=== PATIENT | female | born 1990 | race Caucasian/White ===

== ENCOUNTER 2016-09-14 02:13 | Inpatient (IN) | payer OTHER ==
[~2016-09-14] VITALS: Ht 152.4 cm; Wt 70.8 kg
[~2016-09-14 02:13] MED LIST: Ibuprofen PO; NPR500T PO; PROC-4 PO
[2016-09-14] MEDS ORDERED: Lactated Ringer's 1,000 ML IV PRN (08:15)
[2016-09-14] MEDS ORDERED: Methylergonovine 0.2 mg/mL Inj IM PRN ×2 (08:15→17:00)
[2016-09-14] MEDS ORDERED: Oxytocin 30 Units/500 mL LR 30 UNITS in IV Premix 1 EACH IV PRN ×2 (08:15→17:00)
[2016-09-14] MEDS ORDERED: Oxytocin 10 Unit/mL Inj IM PRN ×2 (08:15→17:00)
[2016-09-14] MEDS ORDERED: Carboprost 250 mCg/mL Inj IM PRN ×2 (08:15→17:00)
[2016-09-14] MEDS ORDERED: Hemorrhage Kit, Post Partum XX ONE ×2 (08:15→17:00)
[2016-09-14] MEDS ORDERED: Sodium Chloride LOK Flush 10 mL Syringe IVFLUSH PRN (08:15)
[2016-09-14] MEDS ORDERED: Misoprostol 25 mCg/0.25 Tablet VAGINAL ONE (08:20)
[2016-09-14 08:36] LABS: Mean Corpuscular Hemoglobin 27.8 pg (27.0-35.0); Mean Corpuscular Volume 84.8 fL (81-100)
[2016-09-14] MEDS ORDERED: PNV1TABL81 PO (10:35)
--- NOTE | 2016-09-14 14:40 | PCM.HPANE ---
Patient Data Date of Service: Sep 14, 2016 Surgeon Admitting Provider:Endy Arzate MD Attending Provider:Endy Arzate MD Primary Care Physician:Endy Arzate MD Other Provider:Daljit Parish Anesthesia Reason for Visit Induction INDUCTION Ht/WT & BMI Body Mass Index Allergies Coded Allergies: tetracycline (Verified Allergy, Unknown, hives, 09/08/16) Past Anesthesia History Anesthesia History: Denies:: Abnormal Airway Diabetes History Hx Diabetes?: No MRSA MRSA: No Medications Hypertension Medication: No Home Meds Incl Beta Maria G: No Reported Medications Pnv No.122/Iron/Folic Acid ( Multi Tablet)27 Mg Iron-800 Mcg Tablet1 Each PO 09/14/16 Discontinued Scripts Prochlorperazine Maleate (Compazine)10 Mg [id number] Mg PO TID PRN For Headache # 15 TABLET Prov:Sundeep Loera DO 08/18/15 Naproxen 500 Mg [id number] Mg PO BID PRN For Pain #20 TABLET Prov:Sundeep Loera DO 08/18/15 [Ibuprofen] (Motrin)600 MG TABLET No Conflict [id number] Mg PO Q6H PRN For Mild Pain #15 TABLET Prov:Kristen Duran MD 09/03/14 History History of ENT Problems?: No HEENT History: Denies:: Abnormal Airway Denture Type: None Teeth Condition: Within Normal Limits Hx of Heart Problems?: No Cardiovascular History: Denies:: Congestive Heart Failure Hypertension Hx of Respiratory Problem?: No Respiratory History: Denies:: Asthma Tuberculosis Hx Neurologic Problems?: No Neurological History: Denies:: CVA Hx of GI Problems?: No Hx of Problems?: No HX of Peritoneal Dialysis: No Female Hx: Positive for:: Currently Hx Musculoskeletal Problems?: No Hx of Psycho/Social Problems?: No Hx Surgeries?: No Hx Any Other Health Problems?: No Other History: Positive for:: Hospitalization (childbirth) History Blood Transfusions: Denies:: Blood Transfusions Hx Diabetes: No Hx Alcohol Use: Yes (SOCIAL)Hx Substance Use: No Smoking Status: Never Smoker Have You Smoked inLast 12 mo: No Stop/Bang Treated for Sleep Apnea?: No Do You Have a CPAP Machine?: No ALVIN Risk Assessment: Low Risk, <3 Yes Risk Assessment Category Category 1A: Patient has history of documented sleep apnea, and HAS NOT received any narcotic, sedative or anesthesia administration during this stay. Category 1B: Patient has history of documented sleep apnea, and HAS received any narcotic , sedative or anesthesia administration during this stay Category 2: Patient has SUSPECTED Obstructive Sleep Apnea, and HAS received any narcotic , sedative or anesthesia administration during this stay. Category 3: Patient has SUSPECTED Obstructive Sleep Apnea and HAS NOT received narcotic, sedative or anesthesia administration during this stay. Category 4: Outpatient in Procedural Areas with known sleep apnea or who screen positive for High Risk via the STOP/BANG questionnaire. Exam Exam General Appearance: Alert, Oriented X3 HEENT/AIRWAY: MP 1 Lungs: Clear to Auscultation Heart: Exam Unremarkable Meds/Labs/Diagnostics Labs Test 09/14/16 08:00 White Blood Count 9.8th/mm3 (3.8-10.1) Red Blood Count 3.96mil/mm3 (3.90-5.20) Hemoglobin 11.0g/dL (12.0-15.6) Hematocrit 33.6% (35.0-46.0) Mean Corpuscular Volume 84.8fL (81-100) Mean Corpuscular Hemoglobin 27.8pg (27.0-35.0) Mean Corpuscular Hemoglobin Concent 32.7% (32.0-37.0) Red Cell Distribution Width 13.4% (12.3-15.4) Platelet Count 468bil/L (150-400) Plan Impression Patient chart reviewed, patient interviewed and anesthestic plan with risks, benefits, and alternatives discussed, and informed consent obtained. NPO per Anesth. Guidelines: Yes ASA Physical Status: ASA1 Normal Healthy Anesthetic Plan: Regional Block Bene/Risks/Altern/Consents: Yes HP Complete Prior to Induction: Yes Mathew Montalvo MD Sep 14, 2016 14:40
--- NOTE | 2016-09-14 16:13 | HP ---
[address] [address] HISTORY AND PHYSICAL PATIENT: JUNAID ALTMAN : 1990 MR#: [id number] ADMIT: 09/14/2016 JOB ID: [id number] CHIEF COMPLAINT: Induction of labor. HISTORY OF PRESENT ILLNESS: This is a 26-year-old G 3, P 2-0-0-2 female who is presenting at 39 plus 4 weeks gestational age with an EDC of September 17, 2016, for an induction of labor due to biparietal diameter less than 5th percentile. She also had hematuria as well as proteinuria in the but blood pressures were otherwise normal. She had been followed for the small biparietal diameter with the last one at 1st percentile at her last ultrasound, and because of this, she was recommended to proceed with an induction of labor beyond 39 weeks. PAST MEDICAL HISTORY: Denies with the exception of proteinuria and hematuria. OBSTETRICAL HISTORY: She has had two full-term vaginal deliveries in the remote past at 40 weeks. Largest baby was 7 pounds 1 ounce. Her deliveries were complicated by proteinuria as well previously. SURGICAL HISTORY: None. OBSTETRICAL HISTORY: As noted above. SOCIAL HISTORY: No tobacco, alcohol or drug use. FAMILY HISTORY: Noncontributory. LABORATORY DATA: Shows a blood type of A positive, antibody screen negative, rubella immune, varicella immune, hep B surface antigen negative, RPR nonreactive, HIV negative, and GBS negative. Last ultrasound showed 24th percentile estimated weight, with a biparietal diameter at the 1st percentile and a nuchal cord was noted. Objectively, at the time of admission, her blood pressure is 123/82, her heart rate is 93, her temperature is 36.6, and she is satting 98% on room air. In general, she is awake, alert, oriented, in no acute distress. Heart shows regular rate and rhythm. Her lungs are clear to auscultation bilaterally. Her abdomen is soft, nontender, nondistended with size appropriate for dates. Fundal height is 38. Her extremities show no tenderness, trace lower extremity edema. She was started on Pitocin in the morning and her cervix was checked by me. At last check, she was noted to be 4, 60% effaced and -2 station. heart tones show 130s baseline, moderate variability, with accelerations present. Mild occasional variable decelerations. She was yfn every 2 minutes. Pitocin was noted to be at 10 milliunits. An artificial rupture of membranes was completed at the bedside with return of clear fluid. ASSESSMENT AND PLAN: This is a 26-year-old G 3, P 2-0-0-2 female at 39 plus 4 weeks gestational age with an EDC of September 17, 2016, admitted for an induction of labor due to biparietal diameter at the 1st percentile. Induction has been started with Pitocin per protocol and artificial rupture of membranes was completed. She will receive an epidural when desired. She is GBS negative and no antibiotics are indicated. She is also Rh positive, rubella immune and varicella immune. The patient has agreed to the induction and we will continue with the same.
[2016-09-14] MEDS ORDERED: Benzocaine (Dermoplast) 20% 60 Gm Spray TOPICAL PRN (17:00)
[2016-09-14] MEDS ORDERED: LANOlin HPA 7 Gm Ointment TOPICAL PRN (17:00)
[2016-09-14] MEDS ORDERED: Lactated Ringer's 1,000 ML IV SCH (17:00)
[2016-09-14] MEDS ORDERED: oxyCODONE-Acetamin 5-325 mg Tablet PO PRN (17:00)
[2016-09-14] MEDS ORDERED: Witch Hazel-Glycerin Pads TOPICAL PRN (17:00)
[2016-09-14] MEDS ORDERED: Ascorbic Acid 500 mg Tablet PO SCH (17:30)
--- NOTE | 2016-09-14 23:46 | OP ---
[address] [address] OPERATIVE REPORT PATIENT: JUNAID ALTMAN : 1990 MR#: [id number] ADMIT: 09/14/2016 JOB ID: [id number] DATE OF SURGERY: 09/14/2016 PREOPERATIVE DIAGNOSIS(ES): 1. A 39 plus 4 week intrauterine , here for induction of labor. 2. Biparietal diameter less than the 1st percentile on ultrasound. 3. History of hematuria and proteinuria. POSTOPERATIVE DIAGNOSIS(ES): 1. A 39 plus 4 week intrauterine , here for induction of labor. 2. Biparietal diameter less than the 1st percentile on ultrasound. 3. History of hematuria and proteinuria. PROCEDURE PERFORMED: Spontaneous vaginal delivery. SURGEON: Bertha Phillips MD. ANESTHESIA: Local anesthetic. ESTIMATED BLOOD LOSS: 200 cc. FLUID REPLACEMENT: Crystalloid in labor. FINDINGS: Liveborn female , spontaneous cry and spontaneous movement of all four extremities, with Apgars of 8 at one minute, 9 at five minutes. weight is unavailable at this time. COMPLICATIONS: None apparent. INDICATIONS: This is a 26-year-old G3, P2-0-0-2 female who presented for an induction of labor at 39 plus 4 weeks gestation with EDC of September 17, 2016, for biparietal diameter less than the 1st percentile. She also had a history of hematuria and proteinuria in this . She was admitted on the morning of the to undergo the above-stated planned induction. Her cervix was checked and noted to be 2 cm dilated at the time of admission. She was yfn too frequently for Cytotec so Pitocin was then started per protocol. Around noon she had progressed to about 4 cm dilated and artificial rupture of membranes was completed with return of clear fluid. She very quickly progressed after rupture and got into the birthing tub. She requested epidural but our anesthesiologist was preoccupied with a section and she was not able to get one. She quickly progressed to complete and delivered precipitously prior to my arrival. PROCEDURE: The patient was delivered by the time of my arrival by the nursing staff. The umbilical cord was clamped and cut after a 60 second cord clamping delay and cord blood was then obtained. Placenta delivered intact spontaneously after Pitocin was started per protocol. The uterus was firm on bimanual exam. Examination of the cervix, vaginal vault and perineum showed a small first-degree laceration which was repaired with 3-0 Vicryl in the usual running fashion after injection with local anesthetic. She tolerated this procedure well. Recovered in labor and delivery with her infant. All sponge, needle, and instrument counts were correct.
[2016-09-15 06:57] LABS: Mean Corpuscular Hemoglobin 27.2 pg (27.0-35.0); Mean Corpuscular Volume 86.1 fL (81-100)
--- NOTE | 2016-09-15 07:22 | PCM.PNOBPP ---
Subjective Date of Service Sep 15, 2016 Post : Spontaneous Vaginal Delivery Visit History This is a 26-year-old G 3, P 2-0-0-2 female who is presenting at 39 plus 4 weeks gestational age with an EDC of September 17, 2016, for an induction of labor due to biparietal diameter less than 5th percentile. She also had hematuria as well as proteinuria in the but blood pressures were otherwise normal. She had been followed for the small biparietal diameter with the last one at 1st percentile at her last ultrasound, and because of this, she was recommended to proceed with an induction of labor beyond 39 weeks. Subjective Patient has no complaints today. Lochia: Normal Gastrointestinal: Good Appetite, No N/V Postop Activity: Ambulating Independently Labs Laboratory Tests 09/15/16 06:35: White Blood Count 13.4, Red Blood Count 3.16, Hemoglobin 8.6, Hematocrit 27.2, Mean Corpuscular Volume 86.1, Mean Corpuscular Hemoglobin 27.2, Mean Corpuscular Hemoglobin Concent 31.6, Red Cell Distribution Width 13.3, Platelet Count 353 Exam Vital Signs Vital Signs: VS reviewed, stable Exam Abdomen: Fundus firm Extremities: No cords General: Alert, Oriented X3, Cooperative, No Acute Distress OB Post Assessment/Plan Problems: (1) Vaginal delivery Plan: Doing well today. Status: Acute ICD Code: O80 Post plan: Continue routine post care, Anticipate discharge home today Endy Arzate MD Sep 15, 2016 07:16
[2016-09-15] MEDS ORDERED: Ascorbic Acid PO (07:25)
[2016-09-15] MEDS ORDERED: FERR-74 PO (07:25)
[2016-09-15] MEDS ORDERED: DOCU-41 PO (07:25)
[2016-09-15] MEDS ORDERED: IBUP800T28 PO (07:25)
--- NOTE | 2016-09-15 07:27 | PCM.DIOB ---
Obstetrical Disch Instruction Dates of Hospitalization Date of Hospital Admission Sep 14, 2016 at 07:06 Providers Admitting Physician: Endy Arzate MD Primary Care Physician: Endy Arzate MD Attending Physician: Endy Arzate MD Discharge Diagnosis Discharge Diagnosis Problems: (1) Vaginal delivery Plan: Normal vaginal delivery. Discharge home today doing well Status: Acute ICD Code: O80 Diet Discharge Diet: No restrictions Activity Discharge Activity-General: Pelvic Rest for 6 weeks, Be up and about, Balance rest and activity Dressing and Incisional Care Hygiene: May shower, Perineal care, Sitz bath Follow Up Plan Follow-up Provider (F9): Endy Arzate MD Follow-up appointment: Weeks (4) Call your provider for: Fever or Chills, Shortness of breath, Heavy vaginal bleeding, Vaginal discomfort, Red painful breasts Endy Arzate MD Sep 15, 2016 07:27
--- NOTE | 2016-09-15 07:30 | PCM.DC.OB ---
Obstetrical Discharge Summary Date of Service Sep 15, 2016 Date of hospital admission Sep 14, 2016 at 07:06 Date of Discharge: Sep 15, 2016 Providers Admitting Physician: Matt York MD Primary Care Physician: Matt York MD Attending Physician: Matt York MD Problems: (1) Vaginal delivery Status: Acute ICD Code: O80 (2) care and examination immediately after delivery Plan: Doing well Discharge home today Status: Acute ICD Code: Z39.0 Brief History and Physical: This is a 26-year-old G 3, P 2-0-0-2 female who is presenting at 39 plus 4 weeks gestational age with an EDC of September 17, 2016, for an induction of labor due to biparietal diameter less than 5th percentile. She also had hematuria as well as proteinuria in the but blood pressures were otherwise normal. She had been followed for the small biparietal diameter with the last one at 1st percentile at her last ultrasound, and because of this, she was recommended to proceed with an induction of labor beyond 39 weeks. Hospital Course: This is a 26-year-old G 3, P 2-0-0-2 female who is presenting at 39 plus 4 weeks gestational age with an EDC of September 17, 2016, for an induction of labor due to biparietal diameter less than 5th percentile. She also had hematuria as well as proteinuria in the but blood pressures were otherwise normal. She had been followed for the small biparietal diameter with the last one at 1st percentile at her last ultrasound, and because of this, she was recommended to proceed with an induction of labor beyond 39 weeks. She was started on pitocin and AROM and had a precipitous delivery. Uncomplicated course. ([Ascorbic Acid]) 500 MG TABLET 500 MG PO BIDWM Prescribed by: MATT YORK MD Docusate Sodium (Colace) 100 Mg Capsule 100 MG PO BID Prescribed by: MATT YORK MD Ferrous Sulfate (Feosol) 325 Mg Tablet 325 MG PO BIDWM Prescribed by: MATT YORK MD Ibuprofen (Ibuprofen) 800 Mg Tablet 800 MG PO Q6H PRN PRN For Pain Prescribed by: MATT YORK MD Pnv No.122/Iron/Folic Acid ( Multi Tablet) 27 Mg Iron-800 Mcg Tablet 1 EACH PO (Reported) Last Taken: Unknown Dose on 09/13/16 0900 Discontinued Medications ([Ibuprofen]) 600 MG TABLET 600 MG PO Q6H PRN PRN For Mild Pain Prescribed by: ANNETTA NINO MD Naproxen (Naproxen) 500 Mg Tab 500 MG PO BID PRN PRN For Pain Prescribed by: DAKOTAH JAUREGUI DO Prochlorperazine Maleate (Compazine) 10 Mg Tablet 10 MG PO TID PRN PRN For Headache Prescribed by: DAKOTAH JAUREGUI DO Discharge Diet: No restrictions Discharge Activity-General: Pelvic Rest for 6 weeks, Try not to overdue, Be up and about Matt York MD Sep 15, 2016 07:28
[2016-09-15 10:15] VITALS: BP 106/64; PULSE 86; RESP 17
== END 2016-09-15 10:30 | disposition home or self-care (01) | DRG 775 ==
LOC: FBC 07:06
PROVIDERS: ADMIT Obstetrics & Gynecology; ATTEND Obstetrics & Gynecology
PROC: 10E0XZZ Delivery of Products of Conception, External Approach (ICD-10-PCS; principal; 2016-09-14)
PROC: 10907ZC Drainage of Amniotic Fluid, Therapeutic from Products of Conception, Via Natural or Artificial Opening (ICD-10-PCS; 2016-09-14)
PROC: 0HQ9XZZ Repair Perineum Skin, External Approach (ICD-10-PCS; 2016-09-14)
DX: O62.3 Precipitate labor (principal); O70.0 First degree perineal laceration during delivery; Z3A.39 39 weeks gestation of pregnancy; Z37.0 Single live birth

== ENCOUNTER 2016-09-17 21:37 | Emergency (ER) | payer OTHER ==
[~2016-09-17] VITALS: Ht 165.1 cm; Wt 6.4 kg
[~2016-09-17 21:37] MED LIST changes: +Ascorbic Acid PO; +DOCU-41 PO; +FERR-74 PO; +IBUP800T28 PO; -Ibuprofen PO; -NPR500T PO; +PNV1TABL81 PO; -PROC-4 PO
[2016-09-17 21:40] VITALS: BP 117/78; PULSE 92; RESP 16; O2SAT 99
--- NOTE | 2016-09-17 22:14 | ED.REPORT ---
HPI-General Illness Date of Service Sep 17, 2016 ED Provider: Dr. Kathleen Ruiz D.O. The patient is a healthy 26 year old female three days who presents to the ED reporting RLQ abdominal pain onset today. The pain is intermittent and "sharp" in nature, with radiation to her lower back - distinct from the diffuse abdominal cramping she has been experiencing since giving . The patient also reports dizziness, decreased appetite, and nausea. She denies dysuria or other symptoms. The patient is currently . Please see MDM for more history Nursing Notes Stated Complaint: ABDOMINAL PAIN Chief Complaint: Female Abdominal Pain Nursing Notes Reviewed: Yes Allergies: Coded Allergies: tetracycline (Verified Allergy, Unknown, hives, 09/08/16) Scheduled ([Ascorbic Acid]) 500 MG TABLET 500 MG PO BIDWM Docusate Sodium (Colace) 100 Mg Capsule 100 MG PO BID Ferrous Sulfate (Feosol) 325 Mg Tablet 325 MG PO BIDWM Scheduled PRN Hydrocodone-Acetaminophen 5-325 mg (Hydrocodone-Acetaminophen 5-325 mg) 1 Each Tablet 1 TABLET PO Q4H PRN PRN For Pain Ibuprofen (Ibuprofen) 800 Mg Tablet 800 MG PO Q6H PRN PRN For Pain Miscellaneous Medications Pnv No.122/Iron/Folic Acid ( Multi Tablet) 27 Mg Iron-800 Mcg Tablet 1 EACH PO General Time Seen by MD: 22:14 Chief Complaint Abdominal pain Hx Obtained From: Patient Arrived By: Walk-in Onset Occurred: 5 - 8 hours ago Symptom Duration: Intermittent Location: : Abdomen Quality: Painful, Sharp Radiation: : Back Severity: Current: Pain level 7 out of 10 Severity: Maximum: Pain level 9 out of 10 Pertinent Negative: Relieved by nothing Recent Healthcare: Recent doctor visit, Recent hospitalization Past Medical History Past Medical History None reported Past Surgical History None reported Smoking History Never Smoker Social History Alcohol Use: Denies alcohol use Drug Use: Denies drug use Other Social History: Ambulatory Status Independent Review of Systems + Decreased appetite Full Review of Systems Constitutional: Denies: Fever Respiratory: Denies: Non-productive cough, Shortness of breath GI: Reports: Abdominal pain (RLQ), Nausea, Denies: Diarrhea, Vomiting Female: Denies: Dysuria Musculoskeletal: Reports: Back pain Neurologic: Reports: Dizziness Complete sys rev & neg: except as marked. Physical Exam Vital Signs Vital Signs Date Time Temp Pulse Resp B/P Pulse Ox O2 Delivery O2 Flow Rate FiO2 09/18/16 01:11 88 16 113/77 98 Room Air 09/18/16 01:10 88 16 113/77 98 Room Air 09/17/16 21:40 36.7 92 16 117/78 99 Room Air Initial VS: Reviewed Head / Eyes: Atraumatic, Normocephalic ENT: Conjunctiva normal, No scleral icterus Neck: Supple, Full range of motion Skin: Warm, Dry, No cyanosis Neurologic: Alert, Oriented, Nonfocal Psychiatric: Mood/affect normal, Behavior normal, Normal thought content General/Constitutional: Awake, Alert Respiratory / Chest: Breath sounds NL, Breath sounds = bilat, No respiratory distress Cardiovascular: Heart rate NL, Regular rhythm, Heart sounds NL Abdomen: Soft, No rebound Tenderness/Guarding/Rebound: Positive: McBurney's point tender, Tender RLQ... Uterine fundus is firm, 2 finger breadths below umbilicus Guarding present Back: Inspection NL, Full range of motion, No midline vertebral tend, No paraspinal tenderness, No CVA tenderness Interpretation & Diagnostics URINE DIPSTICK: Bedside Urine Specific [place] * 1.000 Bedside Urine pH * 7 Bedside Urine Leukocyte Esterase * Negative Bedside Urine Nitrite * Negative Bedside Urine Protein * ++ (100) Bedside Urine Glucose * Normal Bedside Urine Ketones * Negative Bedside Urine Urobilinogen * Normal Bedside Urine Bilirubin * Negative Bedside Urine Occult Blood * ~50 Oleg/ml Urine to Lab * Yes Lab Results Interpretation Result Diagram: 09/17/16223909/17/16 2240 Test 09/17/16 22:40 09/17/16 23:53 White Blood Count 11.0th/mm3 (3.8-10.1) Red Blood Count 3.74mil/mm3 (3.90-5.20) Hemoglobin 10.3g/dL (12.0-15.6) Hematocrit 31.5% (35.0-46.0) Mean Corpuscular Volume 84.2fL (81-100) Mean Corpuscular Hemoglobin 27.5pg (27.0-35.0) Mean Corpuscular Hemoglobin Concent 32.7% (32.0-37.0) Red Cell Distribution Width 13.6% (12.3-15.4) Platelet Count 383bil/L (150-400) Neutrophils (%) (Auto) 79.3% (40-74) Lymphocytes (%) (Auto) 14.2% (14-46) Monocytes (%) (Auto) 3.9% (4-12) Eosinophils (%) (Auto) 2.2% (0-5) Basophils (%) (Auto) 0.1% (0-3) Sodium Level 137mEq/L (134-144) Potassium Level 3.6mEq/L (3.5-5.2) Chloride Level 102mEq/L (97-108) Carbon Dioxide Level 21mmol/L (18-29) Blood Urea Nitrogen 9mg/dL (6-20) Creatinine 0.59mg/dL (0.57-1.00) Estimat Glomerular Filtration Rate 176mL/min (>59) Glucose Level 98mg/dL (60-99) Lactic Acid Level 0.7mmol/L (0.4-2.0) Calcium Level 8.5mg/dL (8.5-10.1) Magnesium Level 1.8mg/dL (1.6-2.6) Total Bilirubin 0.2mg/dL (0.0-1.2) Aspartate Amino Transf (AST/SGOT) 48U/L (0-50) Alanine Aminotransferase (ALT/SGPT) 43U/L (0-32) Alkaline Phosphatase 118U/L (25-150) Total Protein 5.5g/dL (6.4-8.4) Albumin 2.7g/dL (3.4-5.0) Lipase 14U/L (13-60) Urine Color Straw (YELLOW) Urine Appearance Clear (CLEAR,HAZY) Urine pH 7.0 (5.0-8.0) Urine Specific [place] 1.013 (1.003-1.035) Urine Protein 100mg/dL (NEG,TRACE) Urine Glucose (UA) Negativemg/dL (NEGATIVE) Urine Ketones Negativemg/dL (NEGATIVE) Urine Occult Blood Small (NEGATIVE) Urine Nitrite Negative (NEGATIVE) Urine Bilirubin Negative (NEGATIVE) Urine Urobilinogen Normalmg/dL (NORMAL) Urine Leukocyte Esterase Negative (NEGATIVE) Urine RBC 3-10/hpf (0-2) Urine WBC 0-5/hpf (0-5) Urine Epithelial Cells Few/hpf (NONE-MOD) Urine Crystals None seen (NONE SEEN) Urine Bacteria None/hpf (NONE-FEW) Urine Hyaline Casts None/lpf (NONE) Urine Granular Casts None seen (NONE SEEN) Urine Waxy Casts None seen (NONE SEEN) Urine Red Blood Cell Casts None seen (NONE SEEN) Urine White Blood Cell Casts None seen (NONE SEEN) Urine Mucus None seen (None Seen) Urine Trichomonas None seen (NONE SEEN) Urine Yeast None (NONE SEEN) Urine Culture Reflexed Not indicated CT Abd / Pelvis Interpretation CONCLUSION: Normal appendix. No free air, bowel obstruction, or gross intestinal inflammation. Report transmitted to the ED by radiologist Jaziel Bellamy M.D. at 09/18/2016 - 12:25:33 AM PDT Study type: Abdominal CT IV contrast, Abdom CT oral contrast Interpretation / Wet Read by: Interpret - Radiologist Re-Eval/Medical Decision Med Decision/Clinical Course 26-year-old multigravida female presents to days after uneventful vaginal delivery with severe right lower quadrant pain that started just this evening. She notes a decreased appetite since the pain started. It is predominantly in her right lower quadrant but does radiate somewhat to her back. Denies urinary symptoms. Denies fevers or chills. Labs are remarkable for a mild elevation of white blood cells at 11.0 which is normal for . Urine was obtained with a straight cath and there was no pyuria to suggest UTI. Her vitals are stable. Given the severity of her pain and the location I elected to perform a CT with contrast. CT returned without explanation for the pain, specifically a normal appendix and no hydronephrosis. Her pain improved with several doses of Dilaudid and her nausea/vomiting improved with Zofran. She was instructed to follow-up with her PCP/HOT WORKER early next week for a recheck and to return if her symptoms worsen. I gave her a small amount of [place] 5/325 at discharge that she can use for pain. She was not discharged with any narcotics after delivery because she has not had any severe pain and almost controlled with ibuprofen alone. She was also instructed to pump and dump for [address] scan contrast was administered Time of Eval: 00:37 Patient Status: Condition improved Re-Evaluation/Progress Note: The patient's pain has improved but she is concerned it may be returning. Discussed with patient lab results. CT results pending. Time of Eval: 00:48 Patient Status: Condition improved Re-Evaluation/Progress Note: Discussed with patient CT and lab results, diagnosis, and plan for discharge. Follow-up and return to the ER instructions given. Patient agrees with plan for care and all questions were addressed. Counseled Regarding: Diagnosis, Lab results, Need for follow-up, When/why to return to ED Discharge & Departure Primary Impression: Abdominal pain Abdominal location: right lower quadrant Qualified Code: R10.31 - Right lower quadrant pain Additional Impressions: Leukocytosis Leukocytosis type: unspecified Qualified Code: D72.829 - Elevated white blood cell count, unspecified Nausea Disposition: Home Discharge Condition All VS Reviewed: Yes Condition: Improved Patient Instructions: Acute Abdominal Pain (ED) Additional Instructions: Thank you for entrusting us with your care. Your exam today was reassuring for any serious illness. Your CT and lab results were normal. 1-2 [place] every 4-6 hours as needed for pain. Do not drink alcohol, drive, or consume acetaminophen while taking [place]. Call your primary care provider on Monday for a follow-up appointment. Return to the ER with any new or worsening symptoms. Referrals: Endy Arzate MD (PCP/Family) Edwinibshannan Attestation Portions of this note were transcribed by Edie Carcamo. I, Dr. Ruiz, personally performed the history, physical exam, and medical decision-making; I reviewed and confirmed the accuracy of the information in the transcribed note. Signed by: Bassem Dugan, 09/18/2016, 00:59 copies to: Endy Arzate MD, Gary R DO Sep 17, 2016 22:14 EDIE CARCAMO Sep 17, 2016 22:33
[2016-09-17] MEDS ORDERED: 0.9% Sodium Chloride 1,000 ML IV ONE (22:34)
[2016-09-17] MEDS ORDERED: Iohexol 300 mg/mL 30 mL Inj PO ONE (22:35)
[2016-09-17] MEDS ORDERED: Ondansetron 2 mg/mL 2 mL Inj IVPUSH PRN (22:35)
[2016-09-17 22:53] LABS: BASOPHILS % (AUTO) 0.1 % (0-3); EOSINOPHILS % (AUTO) 2.2 % (0-5); MONOCYTES % (AUTO) 3.9 % (4-12); Mean Corpuscular Hemoglobin 27.5 pg (27.0-35.0); Mean Corpuscular Volume 84.2 fL (81-100); NEUTROPHILS % (AUTO) 79.3 % (40-74); Platelet Count 383 bil/L (150-400)
[2016-09-17] MEDS: HYDROmorphone 0.5 mg/0.5 mL iSecure Syringe IVPUSH PRN ×2 (22:54→23:20)
[2016-09-17 23:25] LABS: Magnesium 1.8 mg/dL (1.6-2.6)
[2016-09-18 00:11] LABS: APPEARANCE,URINE CLEAR (CLEAR,HAZY); COLOR,URINE STRAW (YELLOW); OCCULT BLOOD,URINE SMALL (NEGATIVE); UROBILINOGEN,URINE NORMAL (NORMAL)
[2016-09-18] MEDS: HYDROmorphone 0.5 mg/0.5 mL iSecure Syringe IVPUSH PRN (00:52)
[2016-09-18] MEDS ORDERED: HYDR-4003 PO (00:53)
[2016-09-18 01:10] VITALS: BP 113/77; PULSE 88; RESP 16; O2SAT 98
[2016-09-18 01:11] VITALS: BP 113/77; PULSE 88; RESP 16; O2SAT 98
--- NOTE | 2016-09-18 08:27 | DRSVH ---
PROCEDURE: CT ABDOMEN AND PELVIS WITH CONTRAST ([id number]) INDICATIONS: Severe RLQ pain, 2 days post TECHNIQUE: After the administration of oral and intravenous contrast, 5 mm thick sections acquired from the diap hragms to the symphysis. 5 mm thick coronal and sagittal reformats were performed. For radiation do se reduction, the following was used: automated exposure control, adjustment of mA and/or kV accordi ng to patient size. COMPARISON: None. FINDINGS: Image quality: Excellent. ABDOMEN: Lung bases: There is minimal dependent atelectasis. Heart size is normal. Solid organs: Liver and spleen are normal in size and enhancement. Gallbladder appears within ashely l limits without calcified gallstones. Biliary system is non-dilated. Pancreas enhances normally. No adrenal nodules. Kidneys are normal in size and enhancement, without hydronephrosis. Peritoneum and bowel: Stomach, small bowel, and colon loops are normal in caliber and wall thickness . The appendix is normal in appearance. No free fluid or air. Nodes and vessels: No retroperitoneal or mesenteric adenopathy. Aorta and inferior vena cava are no rmal in caliber. Miscellaneous: No ventral hernias. PELVIS: Genitourinary: Bladder wall thickness is normal. There is enlargement and hyperemia of the uterus a nd ovaries bilaterally consistent with post changes. Miscellaneous: No inguinal hernias or adenopathy. Bones: No suspicious bony lesions. No vertebral body compression fractures. IMPRESSION: 1. No evidence of appendicitis or hydronephrosis. 2. Enlarged and hyperemic uterus and ovaries compatible with changes. Dictated by: Eliud Meng M.D. on 09/18/2016 at 8:18 Approved by: Eliud Meng M.D. on 09/18/2016 at 8:20
== END 2016-09-18 01:12 | disposition home or self-care (01) ==
LOC: SED 22:02
DX: O90.89 Other complications of the puerperium, not elsewhere classified (principal); R10.31 Right lower quadrant pain; O99.13 Other diseases of the blood and blood-forming organs and certain disorders involving the immune mechanism complicating the puerperium; D72.829 Elevated white blood cell count, unspecified; R11.0 Nausea; R42 Dizziness and giddiness; Z88.1 Allergy status to other antibiotic agents
CPT/HCPCS: 36415; 74177; 80053; 81000; 83605; 83690; 83735; 85025; 96361; 96374; 96375; 96376; 99285; J1170; J2405; J7030; Q9967